=== PATIENT | male | born 1965 | race Caucasian/White ===

== ENCOUNTER 2023-10-16 22:26 | Emergency (ER) | payer SELFPAY ==
[2023-10-16 22:29] VITALS: BP 178/102; PULSE 129; TEMP 36.7; O2SAT 99; BMI 26.6
--- NOTE | 2023-10-16 22:54 | CT_ITS ---
The [address] [address] Patient Name: MARLEE TAMEZ MRN: [id number] date: 1965 Sex: M Assigned Patient Location: ER Current Patient Location: ER Accession/Order Number: [id number] Exam Date: 10/16/2023 23:13 Report Date: 10/16/2023 23:42 At the request of: MISHA MARKER Procedure: CT head/brain wo con Head CT 10/16/2023 10:13 PM CDT History: headache, AMS. Comparison: None Technique: Unenhanced CT imaging of the head. This CT exam was performed using one or more of the following dose reduction techniques: Automated exposure control, adjustment of the mA and/or KV according to patient size, or use of iterative reconstruction technique. Findings: There is no evidence of acute intracranial abnormality. Specifically, there is no evidence of acute hemorrhage, infarct, contusion, hydrocephalus, midline shift, or abnormal extra-axial collection. The calvarium is intact. The paranasal sinuses and mastoid air cells are clear. CT/CT head/brain wo con Impression: 1. No acute intracranial abnormality. Electronically authenticated by: BLAKE MATTA Date: 10/16/2023 23:42
--- NOTE | 2023-10-16 22:55 | NUTR.NU ---
Remains resting in bed with eyes closed, respirations even and non labored. Security at bedside.
[2023-10-16 23:17] LABS: Basophils Percent Auto 0.3 % (0.2-2.0); Eosinophils Percent Auto 0.3 % (0.9-7.0); Hemoglobin 14.3 g/dL (14.0-18.0); Immature Granulocytes Abs Auto 0.04 10^3/uL (0.00-0.03); Immature Granulocytes Pct Auto 0.3 % (0.0-0.5); Lymphocytes Absolute Auto 1.5 10^3/uL (1.2-3.8); Lymphocytes Percent Auto 11.6 % (20.5-60.0); Mean Corpuscular HGB Conc 34.9 g/dL (29.9-35.2); Mean Corpuscular Hemoglobin 29.6 pg (25.9-34.0); Mean Corpuscular Volume 84.9 fL (80.0-94.0); Mean Platelet Volume 8.2 fL (9.5-13.5); Monocytes Absolute Auto 0.8 10^3/uL (0.3-0.8); Monocytes Percent Auto 6.5 % (1.7-12.0); Neutrophils Absolute Auto 10.5 10^3/uL (1.4-6.5); Platelet Count 280 10^3/uL (150-450); Red Blood Count 4.83 10^6/uL (4.70-6.10); Red Cell Distribution Width 12.2 % (11.0-15.0)
[2023-10-16] MEDS: 0.9 % SODIUM CHLORIDE 500 ML IV (23:25)
[2023-10-16] MEDS: PROMETHAZINE HCL 25 MG/ML VIAL 12.5 MG IM (23:26)
[2023-10-16] MEDS: KETOROLAC TROMETHAMINE 30 MG/ML VIAL IVP (23:26)
[2023-10-16] MEDS: LABETALOL HCL 20 MG/4 ML SYRINGE 10 MG IVP (23:28)
[2023-10-16 23:35] LABS: Alanine Aminotransferase 41 U/L (16-63); Albumin Globulin Ratio 1.2; Albumin Level 4.1 g/dL (3.4-5.0); Alkaline Phosphatase 73 U/L (46-116); Anion Gap 12.5; Aspartate Amino Transferase 14 U/L (15-37); BUN Creatinine Ratio 11.6; Bilirubin Total 0.4 mg/dL (0.2-1.0); Carbon Dioxide 29.7 mmol/L (21.0-32.0); Chloride 91 mmol/L (98-107); Estimated GFR (African America >60 (>=60); Estimated GFR (Non-African Ame >60 (>=60); Globulin 3.5 g/dL; Glucose 113 mg/dL (74-106); Potassium 3.2 mmol/L (3.5-5.1); Sodium 130 mmol/L (136-145); Total Protein 7.6 g/dL (6.4-8.2); Troponin I High Sensitivity 9.5 pg/mL (4.0-76.1)
[2023-10-16 23:49] VITALS: BP 144/86
--- NOTE | 2023-10-17 00:07 | ED.GENADUL1 ---
HPI HPI - General Adult General Chief complaint: Headache Stated complaint: Headache Time Seen by Provider: 10/16/23 22:32 Source: patient Mode of arrival: walk-in History of Present Illness HPI narrative: This 58-year-old male with a history of hypertension presents for evaluation of a headache. The patient states he has been having headaches for approximately 1 year. He is on 2 blood pressure medications that he has been taking but he has been monitoring his blood pressure and his pulse and they have both been high. He denies any chest pain or shortness of breath. He has no focal neurologic symptoms. He states the headache is so bad that he cannot calm down or rest. The headache is mostly on the right side of his head and goes down into the right side of his face. He has not had any blurred vision slurred speech or confusion. He denies smoking. He does take care of his elderly mother and states that they both stopped smoking approximately 10 years ago. He has not had any fever. He denies any neck pain or stiffness. He does not have any skin rash. This headache is not new for him but has been ongoing intermittently for the past year or so. Related Data Home Medications ?Medication ?Instructions ?Recorded ?Confirmed amlodipine 10 mg-benazepril 20 mg 1 cap PO DAILY 10/16/23 10/16/23 capsule (Lotrel) aspirin 81 mg tablet,delayed 81 mg PO DAILY 10/16/23 10/16/23 release (Kristine Low Dose Aspirin) hydrochlorothiazide 50 mg tablet 50 mg PO DAILY 10/16/23 10/16/23 Allergies Allergy/AdvReac Type Severity Reaction Status Date / Time No Known Drug Allergies Allergy Verified 10/16/23 22:37 Opioid HPI Opioid Management Most Recent Opioid Data: No Data to Display Review of Systems ROS Status of ROS 10 or more systems reviewed and unremarkable except as noted in history and below Exam Narrative Exam Narrative: Vital signs and Nursing Notes reviewed: Patient is afebrile, he is tachycardic with a pulse of 129 and blood pressure is elevated at 178/102, he is not hypoxic with pulse ox of 99% on room air General: Anxious middle-age adult male, he is rocking back and forth on the stretcher, no respiratory distress, GCS 15 HEENT: Normocephalic atraumatic, mucous membranes are moist and pink, eyes are clear, normal conjunctiva, vision is grossly intact, posterior pharynx is normal in appearance. Neck: Supple, no meningeal signs Chest: Lungs are clear to auscultation with good air entry, there is no wheezing rhonchi or rales appreciated no accessory muscle use, patient is speaking in complete sentences-no chest wall tenderness to palpation CVS: Regular rate and rhythm S1-S2, no murmurs rubs or gallops, pulses are brisk and equal bilaterally, tachycardic at 129, pulses are brisk and equal bilaterally ABD: Soft, nondistended, nontender, no rebound guarding or rigidity, bowel sounds are normal, no pulsatile masses appreciated Extremities: Moving all extremities, no lower extremity tenderness or swelling noted, negative Homans' sign, pulses are brisk and equal bilaterally Skin: Normal in appearance without rash,pallor, petechiae or purpura Neuro: No focal deficits, speech is clear, there is no facial droop, upper and lower extremity strength and sensation is intact, negative pronator drift, positive rapid alternating hand movements, NIH stroke scale is 0 Constitutional Vital Signs, click to edit/add: Last Vital Signs Temp 98.1 F 10/16/23 22:29 Pulse 87 10/17/23 01:22 Resp 18 10/17/23 01:22 BP 124/70 10/17/23 01:22 Pulse Ox 98 10/17/23 01:22 O2 Del Method Room Air 10/16/23 22:29 Course Vital Signs Vital signs: Vital Signs Temperature 98.1 F 10/16/23 22:29 Pulse Rate 129 H 10/16/23 22:29 Respiratory Rate 20 10/16/23 22:29 Blood Pressure 178/102 H 10/16/23 22:29 Pulse Oximetry 99 10/16/23 22:29 Oxygen Delivery Method Room Air 10/16/23 22:29 Temperature 98.1 F 10/16/23 22:29 Pulse Rate 87 10/17/23 01:22 Respiratory Rate 18 10/17/23 01:22 Blood Pressure 124/70 10/17/23 01:22 Pulse Oximetry 98 10/17/23 01:22 Oxygen Delivery Method Room Air 10/16/23 22:29 Medical Decision Making MDM Narrative Medical decision making narrative: This 58-year-old male presents for evaluation of a right sided headache that has been ongoing for approximately 1 year but worse for the past several days. It is associated with mild photophobia and nausea. He has not had any vomiting. He has not had a fever. There was no thunderclap presentation of the headache. He has been seen by his family physician and placed on 2 blood pressure medications for elevated blood pressure that was thought to be causing his headaches. The patient's neuroexam is normal although he is extremely anxious and upon arrival his pulse was in the 120s. Blood pressure was elevated at 178/102 on arrival. An IV was placed and he was medicated with IV fluids, Toradol and Phenergan IM. He was also given 10 mg of IV labetalol. On reevaluation his headache has improved and he is now resting more comfortably. His blood pressure has come down to 144/86 and his pulse came down into the 80s. Routine labs were ordered. He has a normal white count and hemoglobin. His sodium and potassium are mildly low at 130 and 3.2. Remainder of his electrolytes are normal. Troponin is normal. CT scan of the brain is negative for acute findings. His blood pressure came down further to 124/70. He still had a mild headache and was given a dose of Tylenol prior to discharge. He will be discharged home with a prescription for Fioricet for his headaches with recommendation for close follow-up with his family physician as he may require additional blood pressure medications and further evaluation of his headaches that have been ongoing for the past year. Medical Records Medical records narrative: [place] [address] CT Scan Report Signed Patient: MARLEE TAMEZ MR#: [id number] : 1965 Acct:[id number] Age/Sex: 58 / M ADM Date: 10/16/23 Loc: ER Attending Dr: Ordering Physician: Myra Tello Date of Service: 10/16/23 Procedure(s): CT head/brain wo con Accession Number(s): [id number] cc: MILAGROS VILLARREAL ~ The [address] [address] Patient Name: MARLEE TAMEZ MRN: [id number] date: 1965 Sex: M Assigned Patient Location: ER Current Patient Location: ER Accession/Order Number: [id number] Exam Date: 10/16/2023 23:13 Report Date: 10/16/2023 23:42 At the request of: MYRA TELLO Procedure: CT head/brain wo con Head CT 10/16/2023 10:13 PM CDT History: headache, AMS. Comparison: None Technique: Unenhanced CT imaging of the head. This CT exam was performed using one or more of the following dose reduction techniques: Automated exposure control, adjustment of the mA and/or KV according to patient size, or use of iterative reconstruction technique. Findings: There is no evidence of acute intracranial abnormality. Specifically, there is no evidence of acute hemorrhage, infarct, contusion, hydrocephalus, midline shift, or abnormal extra-axial collection. The calvarium is intact. The paranasal sinuses and mastoid air cells are clear. CT/CT head/brain wo con Impression: 1. No acute intracranial abnormality. Electronically authenticated by: BLAKE MATTA Date: 10/16/2023 23:42 Lab Data Lab results reviewed: Yes I reviewed the patient's lab results Labs: Lab Results 10/16/23 Range/Units 23:00 WBC 13.0 H (4.0-11.0) 10^3/uL RBC 4.83 (4.70-6.10) 10^6/uL Hgb 14.3 (14.0-18.0) g/dL Hct 41.0 L (42.0-54.0) % MCV 84.9 (80.0-94.0) fL MCH 29.6 (25.9-34.0) pg MCHC 34.9 (29.9-35.2) g/dL RDW 12.2 (11.0-15.0) % Plt Count 280 (150-450) 10^3/uL MPV 8.2 L (9.5-13.5) fL Neut % (Auto) 81.0 H (43.0-75.0) % Lymph % (Auto) 11.6 L (20.5-60.0) % [place] % (Auto) 6.5 (1.7-12.0) % Eos % (Auto) 0.3 L (0.9-7.0) % Baso % (Auto) 0.3 (0.2-2.0) % Neut # (Auto) 10.5 H (1.4-6.5) 10^3/uL Lymph # (Auto) 1.5 (1.2-3.8) 10^3/uL [place] # (Auto) 0.8 (0.3-0.8) 10^3/uL Eos # (Auto) 0.0 (0.0-0.7) 10^3/uL Baso # (Auto) 0.0 (0.0-0.1) 10^3/uL Abs Immat Gran (auto) 0.04 H (0.00-0.03) 10^3/uL Imm/Tot Granulo (auto) 0.3 (0.0-0.5) % Sodium 130 L (136-145) mmol/L Potassium 3.2 L (3.5-5.1) mmol/L Chloride 91 L (98-107) mmol/L Carbon Dioxide 29.7 (21.0-32.0) mmol/L Anion Gap 12.5 BUN 13.0 (7.0-18.0) mg/dL Creatinine 1.12 (0.70-1.30) mg/dL Est GFR ( Amer) >60 (>=60) Est GFR (Non-Af Amer) >60 (>=60) BUN/Creatinine Ratio 11.6 Glucose 113 H (74-106) mg/dL Calcium 9.0 (8.5-10.1) mg/dL Total Bilirubin 0.4 (0.2-1.0) mg/dL AST 14 L (15-37) U/L ALT 41 (16-63) U/L Alkaline Phosphatase 73 (46-116) U/L Troponin I High Sens 9.5 (4.0-76.1) pg/mL Total Protein 7.6 (6.4-8.2) g/dL Albumin 4.1 (3.4-5.0) g/dL Globulin 3.5 g/dL Albumin/Globulin Ratio 1.2 ECG Data Attestation: I personally reviewed and interpreted this ECG as follows: (Sinus rhythm 82 bpm, normal axis, normal intervals, no acute ST segment elevation or T wave inversion) Discharge Plan Discharge Stand Alone Forms: Portal Instructions Chief Complaint: Headache Clinical Impression: Headache, Elevated blood pressure reading Patient Disposition: Home, Self-Care Time of Disposition Decision: 01:49 Condition: Good Prescriptions / Home Meds: No Action amlodipine-benazepril [Lotrel] 10-20 mg capsule 1 cap PO DAILY aspirin [Kristine Low Dose Aspirin] 81 mg tablet,delayed release (DR/EC) 81 mg PO DAILY hydrochlorothiazide 50 mg tablet 50 mg PO DAILY Print Language: Dutch Instructions: Migraine Headache (ED), Hypertension (ED) Referrals: MILAGROS VILLARREAL [Primary Care Provider] - 1 week Discharge Date/Time: 10/17/23 02:08
--- NOTE | 2023-10-17 00:14 | ECG_ITS ---
[facility] Test Date: 2023-10-17 Pat Name: MARLEE TAMEZ Department: Room: - Gender: Male [employer]: : 1965 Requested By: [id number] Order Number: [id number] Reading MD: Measurements Intervals [place] Rate: 82 P: 19 VT: 150 QRS: 22 QRSD: 84 T: 34 QT: 364 QTc: 403 Interpretive Statements 1100 Sinus rhythm 9110 normal ECG No previous ECG available for comparison
[2023-10-17] MEDS: 0.9 % SODIUM CHLORIDE 1,000 ML 125 ML IV (00:30)
[2023-10-17] MEDS: POTASSIUM CHLORIDE 10 MEQ ER TABLET 20 MEQ PO (00:32)
[2023-10-17 01:22] VITALS: BP 124/70; PULSE 87; O2SAT 98
[2023-10-17] MEDS: ACETAMINOPHEN 325 MG TABLET 650 MG PO (01:37)
== END 2023-10-17 02:08 | disposition home or self-care (01) ==
PROVIDERS: Emergency Provider Emergency Medicine; PCP Family Medicine
DX: R51.9 Headache, unspecified (principal); I10 Essential (primary) hypertension; Z79.899 Other long term (current) drug therapy; Z87.891 Personal history of nicotine dependence
CPT/HCPCS: 36415; 70450; 80053; 84484; 85025; 93005; 96372; 96374; 96375; 99285; J1290; J1885; J2250